=== PATIENT | female | born 1985 | race Caucasian/White ===

== ENCOUNTER → 2016-06-22 | Outpatient (CLI) | payer OTHER ==
[~2016-06-22] MED LIST: BIRTH CONTROL PILL PO; CHANTIX1 MG PO; GLUCOPHAGE500 MG PO; LISINOPRIL10 MG PO
[2016-06-22 12:06] LABS: HEMATOCRIT 39.2 % (35.0-45.0); HEMOGLOBIN 12.8 gm/dL (12.0-16.0); MEAN CELL VOLUME 83.2 FL (83-96); MEAN CORPUSCULAR HEMOGLOBIN 27.2 PG (28-34); MEAN CORPUSCULAR HGB CONC 32.7 g/dL (30-36); RED BLOOD COUNT 4.71 X10e (3.90-5.30); WHITE BLOOD COUNT 9.3 X10e3 (4.0-10.5)
[2016-06-22 12:43] LABS: BUN/CREATININE RATIO 26.66; CALCIUM SERUM 10.1 mg/dL (8.4-10.2); CREATININE SERUM 1.8 mg/dL (0.6-1.4); GLOM FILT RATE Estimated 35.4 mL/min (>60); POTASSIUM 5.2 mmol/L (3.5-5.1)
== END | disposition home or self-care (01) ==
LOC: CLAB 11:20
PROVIDERS: Internal Medicine Nephrology
DX: I12.9 Hypertensive chronic kidney disease with stage 1 through stage 4 chronic kidney disease, or unspecified chronic kidney disease (principal); N18.3 Chronic kidney disease, stage 3 (moderate)
CPT/HCPCS: 36415; 80048; 85027

== ENCOUNTER → 2016-11-08 | Outpatient (CLI) | payer OTHER ==
[2016-11-08 12:20] LABS: URINE APPEARANCE CLEAR; URINE BILIRUBIN NEG (NEG); URINE BLOOD NEG (NEG); URINE COLOR STRAW; URINE GLUCOSE NORM (NORM); URINE KETONE NEG (NEG); URINE LEUKOCYTE ESTERASE NEG (NEG); URINE NITRATE NEG (NEG); URINE PROTEIN 2+ (NEG); URINE SPECIFIC GRAVITY 1.015 (1.003-1.035); URINE UROBILINOGEN NORM (NORM)
[2016-11-08 12:28] LABS: URINE SOURCE CLEAN CATCH
[2016-11-08 12:31] LABS: U HYALINE CASTS AUWI 0-2 /[LPF]; URINE BACTERIA AUWI 1+ (NEGATIVE); URINE SQUAMOUS EPITHELIAL CELL OCC /[HPF]; UWBCS1 AUWI 0-2 (0-5)
[2016-11-08 12:43] LABS: CREATININE,RANDOM URINE 59 mg/dL; TOTAL PROTEIN,RANDOM URINE 98 mg/dl (<10)
[2016-11-08 12:59] LABS: BUN/CREATININE RATIO 24.5; CALCIUM SERUM 9.8 mg/dL (8.4-10.2); GLOM FILT RATE Estimated 32.7 mL/min (>60); POTASSIUM 4.8 mmol/L (3.5-5.1)
== END | disposition home or self-care (01) ==
LOC: CLAB 11:47
PROVIDERS: Internal Medicine Nephrology
DX: N18.3 Chronic kidney disease, stage 3 (moderate) (principal); N05.9 Unspecified nephritic syndrome with unspecified morphologic changes
CPT/HCPCS: 36415; 80048; 81003; 82570; 84156